=== PATIENT | female | born 1985 | race Hispanic/Latino ===

== ENCOUNTER 2017-04-14 18:18 | Emergency (ER) | payer BC ==
[2017-04-14 18:23] VITALS: BP 135/71; PULSE 77; RESP 20; TEMP 98; O2SAT 99
--- NOTE | 2017-04-14 19:08 | ED PDOC ---
HPI: Female Pain Time Seen by Provider: 04/14/17 18:25 Chief Complaint (Nursing): Female Genitourinary Chief Complaint (Provider): Female Genitourinary History Per: Patient History/Exam Limitations: no limitations Onset/Duration Of Symptoms: Hrs (x1) Current Symptoms Are (Timing): Still Present Additional Complaint(s): 31 year old female with no significant past medical history, who presents to the ED complaining of vaginal bleeding sudden onset x1 hour prior to arrival. Amount of blood has gone through underwear and filled entire pad. Patient continues to have bleeding, but denies any pain or cramping. Denies any urinary symptoms. Patient is 11 weeks and with a recent miscarriage in summer of last year at 9 weeks. Reports some morning sickness that resolved yesterday. Reports taking vitamins prescribed by her PMD, Dr. Banks. PMD: Dr. Banks : 2 Para: 0 Miscarriage: 1 Past Medical History Reviewed: Historical Data, Nursing Documentation, Vital Signs Vital Signs: Last Vital Signs Temp 98.0 F 04/14/17 18:21 Pulse 77 04/14/17 18:21 Resp 20 04/14/17 18:21 BP 135/71 04/14/17 18:21 Pulse Ox 99 04/14/17 18:21 - Medical History PMH: No Chronic Diseases - Surgical History Surgical History: No Surg Hx - Family History Family History: States: Unknown Family Hx - Social History Current smoker - smoking cessation education provided: No Alcohol: None Drugs: Denies - Allergies Allergies/Adverse Reactions: Allergies Allergy/AdvReac Type Severity Reaction Status Date / Time No Known Allergies Allergy Verified 04/14/17 18:21 Review of Systems ROS Statement: Except As Marked, All Systems Reviewed And Found Negative Gastrointestinal: Negative for: Abdominal Pain Genitourinary Female: Positive for: Vaginal Bleeding. Negative for: Dysuria, Frequency, Incontinence - Laboratory Results Result Diagrams: 04/14/17 19:00 - ECG O2 Sat by Pulse Oximetry: 99 (RA) Pulse Ox Interpretation: Normal Medical Decision Making Medical Decision Making: Time: 18:26 Initial Impression: Vaginal bleeding in 1st trimester . Differential diagnoses include, but are not limited to threatened miscarriage, miscarriage, UTI, ectopic , demise Initial Plan: --Blood type and screen --Beta-HCG, quantitative --ED urine --ED urine dipstick --CBC w/ differential --PTT --PT --IV insertion --US OB 1st Trimester & OB Transvag --Reevaluation Time: 20:15 US First Trimester, Transabdominal: Gestation: Single live intrauterine with fetus corresponding to gestational age of 11 weeks and 0 days. Obtained heart rate is 163 bpm. Correlate clinically. Nebo-rump length is 4 cm. Cervix measures 5 cm and closed. Yolk sac noted. Uterus/cervix: See above. Ovaries: Bilateral ovaries not visualized. No evidence of free fluid in the pelvis. IMPRESSION: 1. Single live intrauterine with fetus corresponding to gestational age of 11 weeks and 0 days. Obtained heart rate is 163 bpm. Correlate clinically. 2. Bilateral ovaries not visualized. Time: 20:20 Labs reviewed and found unremarkable. Discussed case with Dr. Rizvi covering for Dr. Hanna. Patient will followup tomorrow in office. Advised pelvic rest and fluids until further evaluated. Scribe Attestation: Documented by Ruben Sena, acting as a scribe for Jaida Morales MD. Provider Scribe Attestation: All medical record entries made by the Scribe were at my direction and personally dictated by me. I have reviewed the chart and agree that the record accurately reflects my personal performance of the history, physical exam, medical decision making, and the department course for this patient. I have also personally directed, reviewed, and agree with the discharge instructions and disposition. Disposition - Clinical Impression Clinical Impression: Threatened miscarriage - Patient ED Disposition Is Patient to be Admitted: No Counseled Patient/Family Regarding: Studies Performed, Diagnosis, Need For Followup - Disposition Referrals: Jocelyn RAI,Cayla [Staff Provider] - 04/15/17 Disposition: Routine/Home Disposition Time: 20:20 Condition: STABLE Additional Instructions: PELVIC REST AND PLENTY OF HYDRATING FLUIDS FOR THE NEXT [address] BANKS'S OFFICE TOMORROW FOR FOLLOW UP APPOINTMENT BY WEDNESDAY RETURN TO ER FOR SEVERE PAIN, BLEEDING MORE THAN ONE PAD AN HOUR, FAINTING OR NEAR FAINTING OR ANY OTHER WORRISOME SYMPTOMS Instructions: Threatened Miscarriage (ED), Pelvic Rest (ED) Forms: [facility] ED School/Work Excuse
[2017-04-14] MEDS ORDERED: Lactated Ringer's 1,000 ML IV STA (19:15)
[2017-04-14 19:24] LABS: BASO % 0.5 % (0.0-2.0); EOS # 0.1 K/uL (0.0-0.7); EOS % 0.9 % (0.0-4.0); HEMOGLOBIN 12.4 g/dL (12.0-16.0); LYMPH # 1.9 K/uL (1.0-4.3); LYMPH % 24.6 % (20.0-40.0); MEAN CELL VOLUME 92.2 fl (81.0-99.0); MEAN CORPUSCULAR HEMOGLOBIN 31.6 pg (27.0-31.0); MEAN CORPUSCULAR HGB CONC 34.3 g/dL (33.0-37.0); MEAN PLATELET VOLUME 8.1 fl (7.2-11.7); MONO # 0.6 K/uL (0.0-0.8); MONO % 7.4 % (0.0-10.0); NEUT # 5.1 K/uL (1.8-7.0); NEUT % 66.6 % (50.0-75.0); RBC 3.93 Mil/uL (3.80-5.20); RED CELL DISTRIBUTION WIDTH 12.5 % (11.5-14.5); WHITE BLOOD COUNT 7.6 K/uL (4.8-10.8)
[2017-04-14 20:05] LABS: PARTIAL THROMBOPLASTIN TIME 20.7 Seconds (25.6-37.1); PROTHROMBIN TIME 11.1 Seconds (9.8-13.1)
--- NOTE | 2017-04-15 08:16 | US ---
PROCEDURE: OB Pelvic Ultrasound HISTORY: vaginal bleeding preg 11 weeks LMP: 01/22/2017 COMPARISON: None available. FINDINGS: UTERUS: Gestational sac: Single intrauterine gestation. Measures 4.5 centimeter compatible with estimated gestational age of 10 weeks, 0 days. Yolk sac: Measures 0.6 centimeter. pole: Ramsay-rump length measures 4.1 centimeter compatible with estimated gestational age of 11 weeks, 0 days. Heart rate: 163 bpm. age (Ultrasound estimated): 10 weeks, 4 days. Carol-gestational hemorrhage: None. Date of delivery (Ultrasound estimated) : 11/06/2017. CERVIX: Measures 5.0 cm. Long and closed. No cervical abnormality seen. RIGHT OVARY: Not visualized. LEFT OVARY: Not visualized. FREE FLUID: None. OTHER FINDINGS: None. IMPRESSION: Single viable intrauterine gestation with average ultrasound age of 10 weeks, 4 days. heart rate 163 beats per minute. Cervix long and closed. Nonvisualization of both ovaries.
== END 2017-04-14 21:05 | disposition home or self-care (01) ==
LOC: H.ER 18:18
DX: O20.0 Threatened abortion (principal); Z3A.11 11 weeks gestation of pregnancy
CPT/HCPCS: 76815; 76817; 81025; 84702; 85025; 85610; 85730; 86850; 86900; 99284; J7120